=== PATIENT | female | born 1995 | race Caucasian/White ===

== ENCOUNTER 2021-12-10 23:57 | Emergency (ER) | payer OTHER ==
[2021-12-11 00:28] LABS: BASO % 0.3 % (0.0-1.0); EOS # 0.1 10*3/uL (0.0-0.4); EOS % 0.5 % (1.0-4.0); HEMATOCRIT 40.3 % (37.0-47.0); LYMPH # 2.7 10*3/uL (1.3-4.4); LYMPH % 25.3 % (27.0-41.0); MEAN CORPUSCULAR HGB 28.9 pg (27.0-31.0); MEAN CORPUSCULAR HGB CONC 33.3 g/dl (33.0-37.0); MEAN PLATELET VOLUME 9.7 fl (9.6-12.3); MONO # 0.7 10*3/uL (0.1-1.0); MONO % 6.5 % (3.0-9.0); NEUT # 7.2 10*3/uL (2.3-7.9); NEUT % 67.1 % (47.0-73.0); PLATELET COUNT AUTOMATED 389 10*3/uL (130-400); RED BLOOD COUNT 4.63 10*6/uL (4.10-5.10); RED CELL DISTRI WIDTH 12.3 % (0-14.5); WHITE BLOOD COUNT 10.7 10*3/uL (4.8-10.8)
[2021-12-11 00:58] LABS: ALKALINE PHOSPHATASE 80 U/L (45-117); BUN 12 mg/dl (7-24); CHLORIDE 106 mmol/L (98-107); CREATININE 0.74 mg/dL (0.55-1.02); LIPASE 139 U/L (73-393); POTASSIUM 3.8 mmol/L (3.5-5.1); SGOT/AST 29 IU/L (3-35); SGPT/ALT 50 U/L (12-78); SODIUM 138 mmol/L (136-145); TOTAL PROTEIN 7.4 gm/dL (6.4-8.2)
[2021-12-11 02:38] LABS: BILIRUBIN Negative (Negative); BLOOD Negative (Negative); CLARITY Cloudy (Clear); COLOR Yellow (Yellow); GLUCOSE Negative (Negative); KETONE Trace (Negative); LEUKO ESTERASE 3+ (Negative); NITRITE Negative (Negative); SPECIFIC GRAVITY 1.015 (1.001-1.030)
[2021-12-11 02:51] LABS: BACTERIA 3+; EPITHELIAL CELLS 16-20; WBC 16-20 wbc/hpf (0-5)
[2021-12-11] MEDS ORDERED: PROAIR HFA8.5 GM INH (04:59)
[2021-12-11] MEDS ORDERED: PREDNISONE20 M1 PO (04:59)
[2021-12-11] MEDS ORDERED: LEVOFLOXACIN750 M2 PO (04:59)
== END 2021-12-11 05:03 | disposition home or self-care (01) ==
LOC: ED 23:57
PROVIDERS: Emergency Medicine
DX: J20.9 Acute bronchitis, unspecified (principal); N39.0 Urinary tract infection, site not specified; Z88.8 Allergy status to other drugs, medicaments and biological substances

== ENCOUNTER 2022-03-29 13:19 | Emergency (ER) | payer OTHER ==
[~2022-03-29] VITALS: Ht 160 cm; Wt 94.3 kg
[~2022-03-29 13:19] MED LIST: LEVOFLOXACIN750 M2 PO; PREDNISONE20 M1 PO; PROAIR HFA8.5 GM INH
[2022-03-29] MEDS ORDERED: VYVANSE30 MG PO (13:50)
[2022-03-29] MEDS ORDERED: CLONAZEPAM0.5 M2 PO (13:50)
[2022-03-29] MEDS ORDERED: PRAZOSIN HYDROCH1 MG PO (13:51)
[2022-03-29] MEDS ORDERED: LATU40TA1 PO (13:51)
[2022-03-29 14:25] LABS: BILIRUBIN Negative (Negative); BLOOD Negative (Negative); CLARITY Clear (Clear); COLOR Yellow (Yellow); GLUCOSE Negative (Negative); KETONE Negative (Negative); LEUKO ESTERASE 1+ (Negative); NITRITE Negative (Negative); PH 6.5 (4.5-8.0); SPECIFIC GRAVITY 1.015 (1.001-1.030)
[2022-03-29 14:37] LABS: BACTERIA 2+; WBC 21-30 wbc/hpf (0-5)
[2022-03-29 16:02] LABS: BASO % 0.3 % (0.0-1.0); EOS # 0.1 10*3/uL (0.0-0.4); EOS % 0.9 % (1.0-4.0); HEMATOCRIT 36.8 % (37.0-47.0); LYMPH # 3.3 10*3/uL (1.3-4.4); LYMPH % 30.9 % (27.0-41.0); MEAN CELL VOLUME 86.8 fl (81.0-99.0); MEAN CORPUSCULAR HGB 29.7 pg (27.0-31.0); MEAN CORPUSCULAR HGB CONC 34.2 g/dl (33.0-37.0); MEAN PLATELET VOLUME 9.8 fl (9.6-12.3); MONO # 0.8 10*3/uL (0.1-1.0); MONO % 7.4 % (3.0-9.0); NEUT # 6.5 10*3/uL (2.3-7.9); NEUT % 60.2 % (47.0-73.0); PLATELET COUNT AUTOMATED 312 10*3/uL (130-400); RED BLOOD COUNT 4.24 10*6/uL (4.10-5.10); RED CELL DISTRI WIDTH 12.2 % (0-14.5); WHITE BLOOD COUNT 10.8 10*3/uL (4.8-10.8)
[2022-03-29 16:19] LABS: ALKALINE PHOSPHATASE 56 U/L (45-117); BUN 16 mg/dl (7-24); CHLORIDE 111 mmol/L (98-107); LIPASE 157 U/L (73-393); POTASSIUM 3.8 mmol/L (3.5-5.1); SGOT/AST 14 IU/L (3-35); SGPT/ALT 22 U/L (12-78); SODIUM 140 mmol/L (136-145); TOTAL PROTEIN 6.7 gm/dL (6.4-8.2)
[2022-03-29] MEDS ORDERED: MACROBID100 M1 PO (18:50)
[2022-03-29] MEDS ORDERED: TRAMADOL HCL50 MG PO (18:50)
== END 2022-03-29 19:15 | disposition home or self-care (01) ==
LOC: ED 13:19
PROVIDERS: Emergency Medicine; Physician Assistant
DX: N20.0 Calculus of kidney (principal); N39.0 Urinary tract infection, site not specified; F17.200 Nicotine dependence, unspecified, uncomplicated; Z79.899 Other long term (current) drug therapy; Z88.8 Allergy status to other drugs, medicaments and biological substances; Z79.2 Long term (current) use of antibiotics